=== PATIENT | male | born 1995 | race African-American/Black ===

== ENCOUNTER 2016-12-02 16:07 | Emergency (ER) | payer OTHER ==
[~2016-12-02] VITALS: Ht 175.3 cm; Wt 79.4 kg
[2016-12-02 16:39] LABS: HEMATOCRIT 42.9 % (42.0-52.0); HEMOGLOBIN 14.9 gm/dL (14.0-18.0); MCH 31.5 pg (26.0-34.0); MCHC 34.7 g/dL (28.0-37.0); MCV 90.6 fL (80.0-100.0); PLATELET COUNT 187 thou/uL (150-400); RBC 4.73 mil/uL (4.50-6.00); WBC 14.5 thou/uL (4.0-11.0)
[2016-12-02 16:40] LABS: URINE BILIRUBIN 2+ (Negative); URINE BLOOD 3+ (Negative); URINE GLUCOSE-RANDOM* TRACE (Negative); URINE KETONES 3+ (Negative); URINE NITRITE NEGATIVE (Negative); URINE PROTEIN (DIPSTICK) 3+ (Negative); URINE SPECIFIC GRAVITY 1.025 (1.003-1.035)
[2016-12-02 16:41] LABS: MANUAL DIFF YES
[2016-12-02 16:42] LABS: ICTOTEST (BILI CONFIRMATORY) Negative (Negative); URINE COLOR DARK YELLOW
[2016-12-02 16:50] LABS: ALBUMIN 3.7 g/dL (3.4-5.0); CALCIUM 9.1 mg/dL (8.5-10.1); CREATININE 1.4 mg/dL (0.7-1.3); TOTAL PROTEIN 8.3 g/dL (6.4-8.2)
[2016-12-02 16:52] LABS: POTASSIUM 2.8 mmol/L (3.5-5.1)
[2016-12-02] MEDS ORDERED: AMOXICILLIN 50500 MG PO (16:52)
[2016-12-02] MEDS ORDERED: POTASSIUM20 PO (16:52)
[2016-12-02] MEDS ORDERED: MOBIC15 MG PO (16:52)
[2016-12-02 16:53] LABS: BACTERIA 1-9 Few /HPF (None Seen); CASTS None Seen /LPF (None Seen); SQUAMOUS None Seen /LPF (0-3); URINE WBC 0-5 Rare /HPF (0-5)
[2016-12-02 16:54] LABS: CRYSTALS None Seen /LPF (None Seen); YEAST Present (None Seen)
[2016-12-02 17:05] LABS: ABSOLUTE NEUTROPHILS 12.6 thou/uL (1.4-8.2); TOTAL CELL COUNT 100
[2016-12-02 18:12] VITALS: BP 118/67
== END 2016-12-02 18:18 | disposition home or self-care (01) ==
LOC: ER 16:07
PROVIDERS: Physician Assistant
DX: J02.0 Streptococcal pharyngitis (principal); R00.0 Tachycardia, unspecified; J45.909 Unspecified asthma, uncomplicated

== ENCOUNTER 2018-02-20 17:14 | Emergency (ER) | payer OTHER ==
[~2018-02-20] VITALS: Ht 175.3 cm; Wt 79.4 kg
[~2018-02-20 17:14] MED LIST: AMOXICILLIN 50500 MG PO; MOBIC15 MG PO; NORFLEX100 MG PO; ONDANSETRON HCL4 M2 PO; POTASSIUM20 PO
[2018-02-20 18:50] VITALS: BP 134/78
[2018-02-22] MEDS ORDERED: IBUPROFEN 600600 M1 PO (22:16)
== END 2018-02-20 18:51 | disposition home or self-care (01) ==
LOC: ER 17:14
DX: S61.512A Laceration without foreign body of left wrist, initial encounter (principal); R42 Dizziness and giddiness; J45.909 Unspecified asthma, uncomplicated; W10.9XXA Fall (on) (from) unspecified stairs and steps, initial encounter; Y93.02 Activity, running; Y92.89 Other specified places as the place of occurrence of the external cause; Y99.8 Other external cause status

== ENCOUNTER 2018-03-03 14:23 | Emergency (ER) | payer OTHER ==
[~2018-03-03] VITALS: Ht 177.8 cm; Wt 79.4 kg
[~2018-03-03 14:23] MED LIST changes: +IBUPROFEN 600600 M1 PO
[2018-03-03 14:25] VITALS: BP 122/74
[2018-03-07] MEDS ORDERED: MOBIC7.5 MG PO (12:33)
[2018-03-07] MEDS ORDERED: LIDODERM1 EACH TOP (12:35)
== END 2018-03-03 16:08 | disposition home or self-care (01) ==
LOC: ER 14:23
DX: R20.2 Paresthesia of skin (principal); Z48.01 Encounter for change or removal of surgical wound dressing; J45.909 Unspecified asthma, uncomplicated